=== PATIENT | female | born 1990 | race African-American/Black ===

== ENCOUNTER 2017-02-20 18:35 | Emergency (ER) | payer SELFPAY ==
[2017-02-20 19:05] VITALS: RESP 14; TEMP 97.5; O2SAT 98
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
[2017-02-20 22:02] VITALS: BP 106/64; PULSE 85
== END 2017-02-20 22:04 | disposition home or self-care (01) ==
LOC: EEVIPCON 18:35
DX: T76.21XA Adult sexual abuse, suspected, initial encounter (principal)